=== PATIENT | male | born 1970 | race Caucasian/White ===

== ENCOUNTER 2017-03-01 15:27 | Emergency (ER) | payer SELFPAY ==
[~2017-03-01] VITALS: Ht 175.2 cm; Wt 113.4 kg
[~2017-03-01 15:27] MED LIST: ANAPROX DS550 MG PO; ASPIRIN ADULT L81 M1 PO; CIPROFLOXACIN500 MG PO; CYCLOBENZAPRINE5 M3 PO; DAYPRO600 M1 PO; DICLOFENAC POTA50 MG PO; FENOFIBRATE160 MG PO; FLEXERIL10 MG PO; FLEXERIL5 MG PO; HYDROCODONE BIT1 T11 PO; IBU-8800 MG PO; KEFLEX500 MG PO; LISINOPRIL10 M1 PO; LISINOPRIL20 MG PO; MOTRIN800 MG PO; Motrin,Rufen800 MG PO; NKHM; NO DAILY MEDS; NORFLEX100 MG PO; ROBAXIN750 MG PO; ROBITUSSIN AC 110 ML PO; VICODIN 5/500 505 MG PO; VICODIN 500 MG-1 TAB PO
[2017-03-01] MEDS ORDERED: Motrin,Rufen800 MG PO (16:45)
[2017-03-01] MEDS ORDERED: CYCLOBENZAPRINE5 M3 PO (16:45)
== END 2017-03-01 16:58 | disposition home or self-care (01) ==
LOC: ED 15:27
DX: S39.012A Strain of muscle, fascia and tendon of lower back, initial encounter (principal); Z90.49 Acquired absence of other specified parts of digestive tract; W10.9XXA Fall (on) (from) unspecified stairs and steps, initial encounter; Y93.89 Activity, other specified; Y92.9 Unspecified place or not applicable; Y99.9 Unspecified external cause status

== ENCOUNTER 2017-07-21 07:45 | Emergency (ER) | payer OTHER ==
[2017-07-21] MEDS ORDERED: DICLOFENAC SOD50 MG PO (08:12)
[2017-07-21] MEDS ORDERED: CYCLOBENZAPRINE10 MG PO (08:12)
[2017-07-21 08:14] LABS: BASO % 0.5 % (0.0-1.0); EOS # 0.1 10*3/uL (0.0-0.4); EOS % 1.7 % (1.0-4.0); HEMATOCRIT 46.2 % (42.0-52.0); LYMPH # 1.1 10*3/uL (1.3-4.4); MEAN CELL VOLUME 79.4 fl (80.0-94.0); MEAN CORPUSCULAR HGB 27.5 pg (27.0-31.0); MEAN CORPUSCULAR HGB CONC 34.6 g/dl (33.0-37.0); MONO # 0.4 10*3/uL (0.1-1.0); MONO % 5.8 % (3.0-9.0); NEUT # 5.8 10*3/uL (2.3-7.9); NEUT % 76.2 % (47.0-73.0); PLATELET COUNT AUTOMATED 194 10*3/uL (130-400); RED BLOOD COUNT 5.82 10*6/uL (4.50-5.90); RED CELL DISTRI WIDTH 12.7 % (0-14.5); WHITE BLOOD COUNT 7.6 10*3/uL (4.8-10.8)
[2017-07-21 08:32] LABS: BUN 18 mg/dl (7-24); CHLORIDE 106 mmol/L (98-107); CREATININE 1.11 mg/dL (0.70-1.30); POTASSIUM 3.9 mmol/L (3.5-5.1); SODIUM 140 mmol/L (136-145)
[2017-07-21 08:39] LABS: TROPONIN I < 0.015 ng/ml (<0.045)
== END 2017-07-21 08:57 | disposition home or self-care (01) ==
LOC: ED 07:45
PROVIDERS: Emergency Medicine
DX: S00.83XA Contusion of other part of head, initial encounter (principal); S09.90XA Unspecified injury of head, initial encounter; R42 Dizziness and giddiness; R55 Syncope and collapse; Z79.899 Other long term (current) drug therapy; W18.39XA Other fall on same level, initial encounter; Y93.89 Activity, other specified; Y92.89 Other specified places as the place of occurrence of the external cause; Y99.8 Other external cause status

== ENCOUNTER 2017-11-23 11:18 | Emergency (ER) | payer SELFPAY ==
[~2017-11-23] VITALS: Ht 175.2 cm; Wt 104.8 kg
[~2017-11-23 11:18] MED LIST changes: +CYCLOBENZAPRINE10 MG PO; +DICLOFENAC SOD50 MG PO
== END 2017-11-23 14:58 | disposition home or self-care (01) ==
LOC: ED 11:18
DX: G43.909 Migraine, unspecified, not intractable, without status migrainosus (principal); Z79.899 Other long term (current) drug therapy; Z90.49 Acquired absence of other specified parts of digestive tract

== ENCOUNTER 2018-03-09 18:30 | Emergency (ER) | payer SELFPAY ==
[~2018-03-09] VITALS: Ht 177.8 cm; Wt 108.9 kg
[2018-03-09] MEDS ORDERED: PREDNISONE50 MG PO (18:58)
[2018-03-09] MEDS ORDERED: NAPROSYN500 MG PO (18:58)
[2018-03-09] MEDS ORDERED: CYCLOBENZAPRINE10 MG PO (18:58)
== END 2018-03-09 20:30 | disposition home or self-care (01) ==
LOC: ED 18:30
DX: M54.6 Pain in thoracic spine (principal); M62.830 Muscle spasm of back; Z98.890 Other specified postprocedural states; Z79.899 Other long term (current) drug therapy; Z90.49 Acquired absence of other specified parts of digestive tract

== ENCOUNTER 2018-07-22 07:54 | Emergency (ER) | payer BC ==
[~2018-07-22 07:54] MED LIST changes: +NAPROSYN500 MG PO; +PREDNISONE50 MG PO
[2018-07-22] MEDS ORDERED: Motrin,Rufen800 MG PO (09:26)
[2018-10-13] MEDS ORDERED: IBUPROFEN600 MG PO (11:38)
== END 2018-07-22 09:45 | disposition home or self-care (01) ==
LOC: ED 07:54
DX: S09.90XA Unspecified injury of head, initial encounter (principal); M54.2 Cervicalgia; M54.6 Pain in thoracic spine; G43.909 Migraine, unspecified, not intractable, without status migrainosus; Z90.49 Acquired absence of other specified parts of digestive tract; W01.10XA Fall on same level from slipping, tripping and stumbling with subsequent striking against unspecified object, initial encounter; Y93.89 Activity, other specified; Y92.096 Garden or yard of other non-institutional residence as the place of occurrence of the external cause; Y99.8 Other external cause status

== ENCOUNTER 2018-11-03 06:48 | Emergency (ER) | payer BC ==
[~2018-11-03] VITALS: Ht 175.2 cm; Wt 113.4 kg
--- NOTE | ~2018-11-03 | EKG ---
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
[~2018-11-03 06:48] MED LIST changes: +IBUPROFEN600 MG PO
[2018-11-03] MEDS ORDERED: Motrin,Rufen800 MG PO (07:19)
== END 2018-11-03 07:41 | disposition home or self-care (01) ==
LOC: ED 06:48
DX: R07.89 Other chest pain (principal); R06.00 Dyspnea, unspecified; G43.909 Migraine, unspecified, not intractable, without status migrainosus; X50.0XXA Overexertion from strenuous movement or load, initial encounter; Y93.89 Activity, other specified; Y92.098 Other place in other non-institutional residence as the place of occurrence of the external cause; Y99.8 Other external cause status

== ENCOUNTER 2019-03-08 09:12 | Inpatient (IN) | payer BC ==
[2019-03-08] VITALS (9 sets, daily range): BP systolic 118–135; BP diastolic 72–92
[~2019-03-08] VITALS: Ht 177.8 cm; Wt 116.4 kg
[2019-03-08 09:50] LABS: BASO # 0.1 10*3/uL (0.0-0.1); BASO % 0.7 % (0.0-1.0); EOS # 0.1 10*3/uL (0.0-0.4); EOS % 2.1 % (1.0-4.0); HEMATOCRIT 40.8 % (42.0-52.0); LYMPH # 1.2 10*3/uL (1.3-4.4); MEAN CELL VOLUME 78.9 fl (80.0-94.0); MEAN CORPUSCULAR HGB 27.1 pg (27.0-31.0); MEAN CORPUSCULAR HGB CONC 34.3 g/dl (33.0-37.0); MONO # 0.5 10*3/uL (0.1-1.0); MONO % 7.7 % (3.0-9.0); NEUT # 4.7 10*3/uL (2.3-7.9); NEUT % 70.6 % (47.0-73.0); PLATELET COUNT AUTOMATED 201 10*3/uL (130-400); RED BLOOD COUNT 5.17 10*6/uL (4.50-5.90); RED CELL DISTRI WIDTH 13.7 % (0-14.5); WHITE BLOOD COUNT 6.7 10*3/uL (4.8-10.8)
[2019-03-08 09:56] LABS: ACT PARTIAL THROMBO TIME 25.7 SECONDS (20.0-32.1); INTERNATIONAL NORM RATIO 0.9 (2.0-3.5)
[2019-03-08 10:03] LABS: ALBUMIN 4.1 gm/dl (3.1-4.5); ALKALINE PHOSPHATASE 52 U/L (45-117); BUN 16 mg/dl (7-24); CHLORIDE 109 mmol/L (98-107); CREATININE 1.13 mg/dL (0.70-1.30); POTASSIUM 3.6 mmol/L (3.5-5.1); SGOT/AST 26 IU/L (3-35); SGPT/ALT 46 U/L (12-78); SODIUM 139 mmol/L (136-145); TOTAL PROTEIN 7.3 gm/dL (6.4-8.2)
[2019-03-08 10:10] LABS: TROPONIN I < 0.015 ng/ml (<0.045)
--- NOTE | 2019-03-08 10:39 | NUR ---
PATIENT DENIES ANY WOUNDS AT THIS TMIE A&OX4.
--- NOTE | 2019-03-08 11:15 | NUR ---
A 48, admitted to , under the services of KAMARI Lee DO with a diagnosis of CHEST PAIN WITH LOW RISK FOR CARDIAC ETIOLOGY. Chief complaint is CHEST PAIN. Patient arrived via CART from ER. Monitor applied. Initial assessment completed. Vital signs taken and recorded. KAMARI LEE DO notified of admission to the unit. Orders received. See assessment for past medical history, medications and allergies. Patient and/or family oriented to unit.[facility]. visitation policy reviewed. Clothing/patient valuable form completed. LENARD ABDALLA
--- NOTE | 2019-03-08 12:05 | NUR ---
PATIENT REPORTS NO HOME MEDS TAKEN.
--- NOTE | 2019-03-08 12:12 | NUR ---
CALL PLACED TO DR. LAGUNAS'S OFFICE SPOKE WITH KIMBERLEE, ASVISED CONSULT WAS FOR CHEST PAIN, REQUEST BETHANY BACK PATIENT HAD ONLY 1/2 A GLASS OF TEA.
--- NOTE | 2019-03-08 18:49 | NUR ---
CALL PLACED TO DR. LAGUNAS'S ON [facility] SERVICE WHEN DR. LAGUNAS WAS IN HE DID NOT SEE PATIENT, PLEASE SEE EARLIER NOTE. SPOKE TO SALLY, HE VERSED HE WILL HAVE DR, RETURN CALL.
--- NOTE | 2019-03-08 18:58 | NUR ---
DE. LAGUNAS CALLED BACK, HE VERSED PATIENT WAS NOT ON LIST, ADVISED I SPOKE WITH KIMBERLEE EARLIER TODAY. HE VERSED HE WILL SEE HIM TOMORROW, PATIENT TO BE NPO AFTER MIDNIGHT INCASE HE NEEDS STRESS TEST.
[2019-03-09] VITALS: BP 119/74
[2019-03-09 06:43] LABS: BASO # 0.1 10*3/uL (0.0-0.1); BASO % 0.7 % (0.0-1.0); EOS # 0.2 10*3/uL (0.0-0.4); HEMATOCRIT 42.2 % (42.0-52.0); HEMOGLOBIN 14.3 g/dl (14.0-18.0); LYMPH # 1.2 10*3/uL (1.3-4.4); LYMPH % 15.7 % (27.0-41.0); MEAN CELL VOLUME 80.4 fl (80.0-94.0); MEAN CORPUSCULAR HGB 27.2 pg (27.0-31.0); MEAN CORPUSCULAR HGB CONC 33.9 g/dl (33.0-37.0); MEAN PLATELET VOLUME 10.7 fl (9.6-12.3); MONO # 0.6 10*3/uL (0.1-1.0); MONO % 7.5 % (3.0-9.0); NEUT # 5.5 10*3/uL (2.3-7.9); NEUT % 73.4 % (47.0-73.0); PLATELET COUNT AUTOMATED 200 10*3/uL (130-400); RED BLOOD COUNT 5.25 10*6/uL (4.50-5.90); RED CELL DISTRI WIDTH 13.7 % (0-14.5); WHITE BLOOD COUNT 7.4 10*3/uL (4.8-10.8)
[2019-03-09 07:00] LABS: CHLORIDE 107 mmol/L (98-107); POTASSIUM 3.8 mmol/L (3.5-5.1); SODIUM 139 mmol/L (136-145)
[2019-03-09 07:15] LABS: ALBUMIN 3.8 gm/dl (3.1-4.5); ALKALINE PHOSPHATASE 48 U/L (45-117); BUN 17 mg/dl (7-24); CHOLESTEROL 128 mg/dL (<200); CREATININE 1.08 mg/dL (0.70-1.30); FREE T4 0.85 ng/dl (0.76-1.46); HDL CHOLESTEROL 39 mg/dl (40-60); LDL CHOLESTEROL 59 mg/dL (9-159); PHOSPHOROUS 2.8 mg/dL (2.5-4.9); SGOT/AST 22 IU/L (3-35); SGPT/ALT 41 U/L (12-78); TOTAL PROTEIN 6.9 gm/dL (6.4-8.2); TRIGLYCERIDES 148 mg/dl (<150); VLDL CHOLESTEROL 30 mg/dL (6-40)
--- NOTE | 2019-03-09 07:30 | NUR ---
ARRIVED ON SHIFT, INTRODUCED TO PATIENT. BEDSIDE REPORT RECEIVED, WHITE BOARD UPDATED. NO NEEDS VOICED AT THIS TIME.
[2019-03-09 08:00] VITALS: BP 129/84
[2019-03-09 08:52] LABS: VITAMIN D, 25-HYDROXY 20.6 ng/mL (30-100)
--- NOTE | 2019-03-09 10:22 | NUR ---
OBTAINED ORTOSTAC BP'S ORDERED BP LYING 121/87, SITTING 129/85, STANDING 115/[address] ENGLAND.
[2019-03-09 12:00] VITALS: BP 133/81
--- NOTE | 2019-03-09 12:53 | NUR ---
CALL PLACED TO DR. LAGUNAS AFTER SPEAKING WITH DR. ENGLAND SHE REQUESTED I CALL TO INQUIRE IF PATIENT WAS GOING TO HAVE A STRESS TEST TODAY. SPOKE WITH KIMBERLEE, OLIVAVERSED SHE WILL MESSAGE DR. LAGUNAS.
--- NOTE | 2019-03-09 14:02 | NUR ---
Burnishing Machine Operator in to talk to patient. Patient states lives at HOME with ALONE. There are NO steps in the home. Physician: STATES HE WANTS TO FOLLOW UP WITH [facility] [place] [facility] services: NONE Patient's level of ADLs: INDEPENDENT Patient has working utilities: YES DME: NONE Follow-up physician's appointment after d/c: WANTS SET UP WITH [facility] Does patient want to access PORTAL?: NO Discharge plan PT LIVES AT HOME ALONE AND IS INDEPENDENT IN HIS CARE. DENIES HE WILL HAVE NEEDS AT HOME ON DISCHARGE. WILL CONTINUE TO FOLLOW. STATES HE WILL HAVE A RIDE HOME WHEN DISCHARGE. . STEPHANIE HERNANDEZ
--- NOTE | 2019-03-09 14:30 | NUR ---
INFORMED CONSENT OBTAINED FOR STANDARD GXT WITH DR. LAGUNAS. RESTING EKG NSR WITH A SUPINE HR OF 72 WITH BP OF 128/82 AND HR OF 99 WITH BP OF 124/86 IN STANDING POSITION. PT COMPLETED 6:00 OF A ROSSY PROTOCOL WITH COMPLETION OF STAGE II AT 2.5 MPH AND 12% GRADE. REACHED A PEAK HR OF 160 WHICH IS 94% OF PREDICTED MAX WITH A PEAK BP OF 148/80. TEST TERMINATED BECAUSE OF FATIGUE AND SOB. IN STAGE I SPO2 OF 99% AND STAGE II SPO2 OF 98%. HAD NO EKG CHANGES. AT 5:00 OF EXERCISE DID DEVELOP "SLIGHT TIGHTNESS" IN LEFT CHEST LIKE ADMITTING DISCOMFORT THAT IS A 7 ON PAIN SCALE. DISCOMFORT RELIEVED AT 1:00 RECOVERY. HAS A FAIR EXERCISE TOLERANCE. LAST RECOVERY HR 108 WITH BP OF 124/70. NEGATIVE EKG FOR STRESS AND POSITIVE CHEST DISCOMFORT. RETURNED TO NURSING UNIT VIA WHEELCHAIR IN STABLE CONDITION.
[2019-03-09 16:00] VITALS: BP 136/80; BP 147/98
--- NOTE | 2019-03-09 18:00 | NUR ---
RECEIVED CALL FROM WASTEWATER TREATMENT OPERATOR THT PATIENT HAD A HERAT REAT OF 120, I WENT TO ROOM TO CHECK ON PATIENT, HE HAD JUST HAD A COUGHING SPELL.
--- NOTE | 2019-03-09 18:30 | NUR ---
CALL PLACED TO DR. ENGLAND ORDER RECEIVED FOR OK TO REMOVE MONITOR FOR SHOWER.
--- NOTE | 2019-03-09 19:13 | NUR ---
PATIENT HAS SPIKES IN PULSE IN THE 130'S CALL PLACED TO HOSPITALIST LINE SPOKE WITH DR. JUÁREZ WHO STATES HE'LL BE UP LATER TO SEE PATIENT.
[2019-03-09 20:00] VITALS: BP 118/80; BP 127/80
--- NOTE | 2019-03-09 21:11 | NUR ---
SPOKE WITH ABOUT PATIENTS FLUCTUATING HEART RATE. SAID TO GIVE HIM 25MG OF METOPROLOL NOW AND KEEP THE SCHEDULED DOSE FOR TOMORROW MORNING.
--- NOTE | 2019-03-09 23:52 | NUR ---
24 HR chart check completed.
[2019-03-10] VITALS: BP 106/75
--- NOTE | 2019-03-10 00:57 | NUR ---
Patient resting quietly with no c/o discomfort. Respirations easy and regular. Vital signs stable. No overt distress. CALL LIGHT WITHIN REACH HISSOM,ADITI
--- NOTE | 2019-03-10 05:57 | NUR ---
Patient resting quietly with no c/o discomfort. Respirations easy and regular. Vital signs stable. No overt distress. HISSOM,ADITI
[2019-03-10] MEDS ORDERED: IMDUR SA30 MG PO (07:40)
[2019-03-10] MEDS ORDERED: VITAMIN D32000 UNI1 PO (07:40)
[2019-03-10] MEDS ORDERED: ASPIRIN CHEWABL81 M1 PO (07:40)
[2019-03-10] MEDS ORDERED: METOPROLOL SUCC25 M2 PO (07:40)
--- NOTE | 2019-03-10 10:12 | NUR ---
Discharge instructions reviewed with patient/family. Patient receptive and verbalizes understanding. Follow-up care arranged. Written instructions given to patient/family. IV REMOVED. TELE REMOVED. GIBRAN SPEARS
== END 2019-03-10 10:12 | disposition home or self-care (01) | DRG 313 ==
LOC: ED 09:12 → EDHOLD 10:18 → 4E 10:18
PROVIDERS: Emergency Medicine; Registered Nurse; ADMIT Family Medicine
PROC: 4A02XM4 Measurement of Cardiac Total Activity, External Approach (ICD-10-PCS; principal; 2019-03-09)
DX: R07.89 Other chest pain (principal); I10 Essential (primary) hypertension; G43.909 Migraine, unspecified, not intractable, without status migrainosus; E78.00 Pure hypercholesterolemia, unspecified; E66.9 Obesity, unspecified; I95.1 Orthostatic hypotension; R00.1 Bradycardia, unspecified; D72.810 Lymphocytopenia; R73.9 Hyperglycemia, unspecified; E55.9 Vitamin D deficiency, unspecified; E78.5 Hyperlipidemia, unspecified; Z82.49 Family history of ischemic heart disease and other diseases of the circulatory system; Z79.899 Other long term (current) drug therapy; Z90.49 Acquired absence of other specified parts of digestive tract; Z68.35 Body mass index [BMI] 35.0-35.9, adult

== ENCOUNTER → 2019-03-23 | Outpatient (CLI) | payer BC ==
[~2019-03-23] MED LIST changes: +ASPIRIN CHEWABL81 M1 PO; +IMDUR SA30 MG PO; +METOPROLOL SUCC25 M2 PO; +VITAMIN D32000 UNI1 PO
== END | disposition home or self-care (01) ==
LOC: RESCLI 01:54
DX: E55.9 Vitamin D deficiency, unspecified (principal); G89.29 Other chronic pain; R07.9 Chest pain, unspecified; F32.1 Major depressive disorder, single episode, moderate; E78.5 Hyperlipidemia, unspecified; Z76.89 Persons encountering health services in other specified circumstances; Z91.89 Other specified personal risk factors, not elsewhere classified; Z79.899 Other long term (current) drug therapy; Z88.8 Allergy status to other drugs, medicaments and biological substances

== ENCOUNTER 2020-01-22 12:46 | Emergency (ER) | payer OTHER, BC ==
[~2020-01-22] VITALS: Ht 177.8 cm; Wt 106.6 kg
== END 2020-01-22 15:04 | disposition home or self-care (01) ==
LOC: ED 12:46
DX: M25.562 Pain in left knee (principal); M79.89 Other specified soft tissue disorders

== ENCOUNTER 2021-12-23 09:27 | Inpatient (IN) | payer BC ==
[~2021-12-23] VITALS: Ht 177.8 cm; Wt 111.6 kg
[2021-12-23 09:36] VITALS: BP 147/126
[2021-12-23 09:57] LABS: BASO # 0.1 10*3/uL (0.0-0.1); EOS # 0.2 10*3/uL (0.0-0.4); EOS % 2.8 % (1.0-4.0); HEMATOCRIT 45.3 % (42.0-52.0); LYMPH % 13.7 % (27.0-41.0); MEAN CELL VOLUME 80.7 fl (80.0-94.0); MEAN CORPUSCULAR HGB 26.9 pg (27.0-31.0); MEAN CORPUSCULAR HGB CONC 33.3 g/dl (33.0-37.0); MEAN PLATELET VOLUME 10.1 fl (9.6-12.3); MONO # 0.5 10*3/uL (0.1-1.0); MONO % 6.5 % (3.0-9.0); NEUT # 5.3 10*3/uL (2.3-7.9); NEUT % 74.9 % (47.0-73.0); PLATELET COUNT AUTOMATED 201 10*3/uL (130-400); RED BLOOD COUNT 5.61 10*6/uL (4.50-5.90); WHITE BLOOD COUNT 7.1 10*3/uL (4.8-10.8)
[2021-12-23 10:09] VITALS: BP 121/82
[2021-12-23 10:21] LABS: BUN 18 mg/dl (7-24); CHLORIDE 111 mmol/L (98-107); CREATININE 1.09 mg/dL (0.70-1.30); POTASSIUM 3.9 mmol/L (3.5-5.1); SGOT/AST 25 IU/L (3-35); SGPT/ALT 42 U/L (12-78); SODIUM 140 mmol/L (136-145)
[2021-12-23 10:23] LABS: ALKALINE PHOSPHATASE 53 U/L (45-117); TOTAL PROTEIN 6.9 gm/dL (6.4-8.2)
[2021-12-23 12:56] VITALS: BP 138/79
[2021-12-23 14:08] VITALS: BP 118/72
[2021-12-23 16:19] VITALS: BP 143/85
[2021-12-23 20:00] VITALS: BP 123/79
[2021-12-24] VITALS: BP 115/71
[2021-12-24 05:39] LABS: BUN 16 mg/dl (7-24); CHLORIDE 109 mmol/L (98-107); CHOLESTEROL 145 mg/dL (<200); CREATININE 1.03 mg/dL (0.70-1.30); POTASSIUM 3.7 mmol/L (3.5-5.1); SGOT/AST 26 IU/L (3-35); SGPT/ALT 42 U/L (12-78); SODIUM 140 mmol/L (136-145); TOTAL PROTEIN 6.4 gm/dL (6.4-8.2); TRIGLYCERIDES 167 mg/dl (<150)
[2021-12-24 05:41] LABS: ALKALINE PHOSPHATASE 49 U/L (45-117)
[2021-12-24 05:42] LABS: LDL CHOLESTEROL 75 mg/dL (9-159)
[2021-12-24 06:23] LABS: BASO # 0.1 10*3/uL (0.0-0.1); BASO % 0.8 % (0.0-1.0); EOS # 0.2 10*3/uL (0.0-0.4); EOS % 3.4 % (1.0-4.0); HEMATOCRIT 43.6 % (42.0-52.0); LYMPH # 1.3 10*3/uL (1.3-4.4); LYMPH % 19.9 % (27.0-41.0); MEAN CORPUSCULAR HGB 27.5 pg (27.0-31.0); MEAN CORPUSCULAR HGB CONC 34.4 g/dl (33.0-37.0); MEAN PLATELET VOLUME 10.3 fl (9.6-12.3); MONO # 0.5 10*3/uL (0.1-1.0); MONO % 7.8 % (3.0-9.0); NEUT # 4.4 10*3/uL (2.3-7.9); NEUT % 67.5 % (47.0-73.0); PLATELET COUNT AUTOMATED 167 10*3/uL (130-400); RED BLOOD COUNT 5.45 10*6/uL (4.50-5.90); RED CELL DISTRI WIDTH 13.1 % (0-14.5); WHITE BLOOD COUNT 6.4 10*3/uL (4.8-10.8)
[2021-12-24 08:00] VITALS: BP 141/79
[2021-12-24 12:00] VITALS: BP 128/87
[2021-12-24 16:00] VITALS: BP 125/69
[2021-12-24 20:00] VITALS: BP 127/86
[2021-12-25] VITALS: BP 115/73
[2021-12-25 06:11] LABS: BUN 16 mg/dl (7-24); CHLORIDE 111 mmol/L (98-107); CREATININE 1.13 mg/dL (0.70-1.30); POTASSIUM 4.1 mmol/L (3.5-5.1); SODIUM 145 mmol/L (136-145)
[2021-12-25 06:21] LABS: BASO # 0.1 10*3/uL (0.0-0.1); BASO % 0.8 % (0.0-1.0); EOS # 0.3 10*3/uL (0.0-0.4); EOS % 3.3 % (1.0-4.0); HEMATOCRIT 47.4 % (42.0-52.0); LYMPH # 1.2 10*3/uL (1.3-4.4); LYMPH % 16.4 % (27.0-41.0); MEAN CELL VOLUME 80.9 fl (80.0-94.0); MEAN CORPUSCULAR HGB 27.5 pg (27.0-31.0); MEAN PLATELET VOLUME 10.4 fl (9.6-12.3); MONO # 0.5 10*3/uL (0.1-1.0); NEUT # 5.5 10*3/uL (2.3-7.9); NEUT % 71.8 % (47.0-73.0); PLATELET COUNT AUTOMATED 194 10*3/uL (130-400); RED BLOOD COUNT 5.86 10*6/uL (4.50-5.90); RED CELL DISTRI WIDTH 13.2 % (0-14.5); WHITE BLOOD COUNT 7.6 10*3/uL (4.8-10.8)
[2021-12-25 08:00] VITALS: BP 136/85
== END 2021-12-25 12:30 | disposition home or self-care (01) | DRG 206 ==
LOC: ED 09:27 → 4E 11:48 → EDHOLD 11:48 → 4E 16:58
PROVIDERS: Emergency Medicine; Internal Medicine; ADMIT Family Medicine; ATTEND Family Medicine
PROC: 4A02XM4 Measurement of Cardiac Total Activity, External Approach (ICD-10-PCS; principal; 2021-12-24)
PROC: 3E073KZ Introduction of Other Diagnostic Substance into Coronary Artery, Percutaneous Approach (ICD-10-PCS; 2021-12-24)
DX: M94.0 Chondrocostal junction syndrome [Tietze] (principal); I10 Essential (primary) hypertension; E66.9 Obesity, unspecified; E87.8 Other disorders of electrolyte and fluid balance, not elsewhere classified; R73.9 Hyperglycemia, unspecified; Z79.82 Long term (current) use of aspirin; Z79.899 Other long term (current) drug therapy; Z90.49 Acquired absence of other specified parts of digestive tract; Z82.49 Family history of ischemic heart disease and other diseases of the circulatory system; Z68.35 Body mass index [BMI] 35.0-35.9, adult; E78.00 Pure hypercholesterolemia, unspecified

== ENCOUNTER 2022-07-06 07:36 | Emergency (ER) | payer BC ==
[~2022-07-06] VITALS: Wt 109.8 kg
[2022-07-06] MEDS ORDERED: Motrin,Rufen800 MG PO (10:20)
== END 2022-07-06 10:25 | disposition home or self-care (01) ==
LOC: ED 07:36
DX: S89.92XA Unspecified injury of left lower leg, initial encounter (principal); Z90.49 Acquired absence of other specified parts of digestive tract; Z98.890 Other specified postprocedural states; W01.0XXA Fall on same level from slipping, tripping and stumbling without subsequent striking against object, initial encounter; Y93.89 Activity, other specified; Y92.89 Other specified places as the place of occurrence of the external cause; Y99.8 Other external cause status

== ENCOUNTER → 2023-05-04 | Outpatient (CLI) | payer OTHER | END | disposition home or self-care (01) | LOC: CT 17:00 | PROVIDERS: ATTEND Family Medicine | DX: S39.011A Strain of muscle, fascia and tendon of abdomen, initial encounter (principal); K76.0 Fatty (change of) liver, not elsewhere classified; R16.1 Splenomegaly, not elsewhere classified; Z90.49 Acquired absence of other specified parts of digestive tract; M47.816 Spondylosis without myelopathy or radiculopathy, lumbar region; J98.11 Atelectasis; K46.9 Unspecified abdominal hernia without obstruction or gangrene; X58.XXXA Exposure to other specified factors, initial encounter; Y93.89 Activity, other specified; Y92.89 Other specified places as the place of occurrence of the external cause; Y99.8 Other external cause status ==